=== PATIENT | male | born 1955 ===

== ENCOUNTER 2017-12-03 22:46 | Emergency (ER) | payer MEDICAID ==
[2017-12-03 23:26] VITALS: BMI 33.0
--- NOTE | 2017-12-03 23:57 | ED PDOC ---
Arrival/HPI - General Chief Complaint: Cardiac Arrest Time Seen by Provider: 12/03/17 23:54 Historian: Patient EM Caveat: Acuity of Condition, Intubated - Critical Care Critical Care Minutes: 60 minutes - History of Present Illness Narrative History of Present Illness (Text): 12/03/17 23:55 62 year old male, with a past medical history of HTN and internal defibrillator , presents to the emergency department by EMS in cardiac arrest 30 minutes prior. Patient went into witnessed cardiac arrest, received 30 minutes of CPR prior to arrival at the hospital. Initial rhythm detected was PEA and atient was given 5 doses of epinephrine in route. There were no shocks delivered prior to arrival at the hospital. Patient was also given bicarbonate , albuterol, calcium gluconate and magnesium in the field. A more complete HPI was unable to be obtained due to the patient's clinical condition Time/Duration: 1/2 hour Symptom Onset: Sudden Context: Walking, Home Past Medical History - Provider Review Nursing Documentation Reviewed: Yes - Travel History Have you recently traveled outside [place] w/in the past 3 mons?: No - Infectious Disease Hx of Infectious Diseases: None - Cardiac Hx Hypertension: Yes Hx Mitral Valve Prolapse: Yes - Psychiatric Hx Substance Use: No - Surgical History Hx Cardiac Catheterization: Yes Hx Coronary Stent: Yes (x2) - Anesthesia Hx Anesthesia: No Family/Social History - Physician Review Nursing Documentation Reviewed: Yes Family/Social History: No Known Family HX Smoking Status: Unknown If Ever Smoked Hx Alcohol Use: No Hx Substance Use: No Allergies/Home Meds Allergies/Adverse Reactions: Allergies Unobtainable Allergy (Verified 12/04/17 02:05) Home Medications: Home Meds Medication Instructions Recorded Confirmed Unobtainable 12/04/17 12/04/17 Review of Systems - Review of Systems Systems not reviewed;Unavailable: Intubated Physical Exam - Physical Exam Physical Exam Limitations: Clinical Condition - Systems Exam Head: Present: Atraumatic, Normocephalic Pupils: Present: Non-Reactive Conjunctiva: Present: Normal Mouth: Present: Other (Intubated) Respiratory/Chest: Present: Clear to Auscultation, Good Air Exchange (b/l breath sounds ) Cardiovascular: Present: Irregular Rhythm (Pulseless Electrical Activity) Abdomen: Present: Normal Bowel Sounds Lower Extremity: Present: Cyanosis Skin: Present: Dry, Cold, Pale Medical Decision Making ED Course and Treatment: Progress Notes 12/03/17 22:43 Patient immediately placed onto monitor and found to be in PEA. Compressions continued. 6th epinephrine given. 12/03/17 22:46 Compressions held for pulse check. No detectable pulse. Compressions resumed. Epinephrine given. Bedside ultrasound reveals no cardiac activity.Discussion with patient's sister(witnessed arrest) who requests for resuscitation efforts to be continued until her brother and nieces(power of consumer attorney) arrive to the hospital. Treatment team notified and will continue efforts for ROSC. 12/03/17 23:50 Discussion with the family who make decision to terminate resuscitative efforts. Treatment team notified. Daughters request autopsy. deportation examiner notified. - Scribe Statement The provider has reviewed the documentation as recorded by the Scribe Aron Chandra All medical record entries made by the Scribe were at my direction and personally dictated by me. I have reviewed the chart and agree that the record accurately reflects my personal performance of the history, physical exam, medical decision making, and the department course for this patient. I have also personally directed, reviewed, and agree with the discharge instructions and disposition. Disposition/Present on Arrival - Present on Arrival Any Indicators Present on Arrival: No History of DVT/PE: No History of Uncontrolled Diabetes: No Urinary Catheter: No History of Decub. Ulcer: No History Surgical Site Infection Following: None - Disposition Have Diagnosis and Disposition been Completed?: Yes Diagnosis: Cardiopulmonary arrest Disposition: WITH WITHOUT AUTOPSY Disposition Time: 23:50 Condition: Referrals: Obi Gipson MD [Family Provider] - Follow up with primary Forms: [employer] (K[place]z)
== END 2017-12-04 01:33 ==
LOC: ED 22:46 → MERGE 22:46 → ED 12-04 01:33
DX: I46.9 Cardiac arrest, cause unspecified (principal)